=== PATIENT | female | born 1990 | race African-American/Black ===

== ENCOUNTER 2017-03-03 02:47 | Inpatient (IN) | payer MEDICAID ==
[~2017-03-03] VITALS: Ht 165.1 cm; Wt 72.4 kg
[2017-03-03] VITALS (11 sets, daily range): BP systolic 95–123; BP diastolic 50–77; PULSE 82–125; RESP 16–20; TEMP 97.4–99.8; O2SAT 93–100
[~2017-03-03 02:47] MED LIST: FOLI1TAB PO
[2017-03-03] MEDS ORDERED: FOLI400T PO (04:02)
[2017-03-03] MEDS ORDERED: SODIUM CHLOR 0.9% 1000 ML INJ 1,000 ML IV ONE ×2 (04:18→04:30)
[2017-03-03] MEDS ORDERED: SODIUM CHLORIDE 0.9% FLUSH 10 ML FLUSH IVF PRN (04:30)
[2017-03-03] MEDS ORDERED: KETOROLAC TROMETHAMINE 30 MG/ML (IVP) VIAL IV PUSH ONE (04:30)
[2017-03-03] MEDS ORDERED: MORPHINE SULFATE 8 MG/ML INJ IV PUSH ONE ×2 (04:30→05:45)
--- NOTE | 2017-03-03 04:37 | PD ---
HPI Chief Complaint: Sickle Cell Time Seen by Provider: 04:12 Travel History International Travel<30 days: No Contact w/Intl Traveler<30days: No Traveled to known affect area: No History of Present Illness HPI Patient is a 26-year-old female presents emergency department for evaluation of pain all over. She states she has a history of sickle cell anemia and this is her typical pain crisis. She states she tried some [place] at home without relief. She does endorse some mild shortness of breath. She states she is currently on her period and she thinks that this usually exacerbates her pain crises. Denies any chest pain denies any fevers. States the pain is typically in her back and a lateral upper and bilateral lower extremities. Denies any abdominal pain. PFSH Past Medical History Asthma: Yes Cardiovascular Problems: Yes (CHF) Respiratory: Yes (ASTHMA) Sickle Cell Disease: Yes ?: Not LMP: CURRENT : 0 Past Surgical History Other Surgery: Yes (CHOLELITHIASIS) Social History Alcohol Use: No Tobacco Use: No Substance Use: No Allergies-Medications (Allergen,Severity, Reaction): Coded Allergies: Percocet (Verified Allergy, Severe, 03/03/17) Reported Meds & Prescriptions Reported Meds & Active Scripts Active Reported Folic Acid 400 Mcg Tab 5 Mg PO DAILY Review of Systems Except as stated in HPI: all other systems reviewed are Neg Physical Exam Narrative GENERAL: Well-developed well-nourished, appears fairly comfortable SKIN: Focused skin assessment warm/dry. HEAD: Atraumatic. Normocephalic. EYES: Pupils equal and round. No scleral icterus. No injection or drainage. ENT: No nasal bleeding or discharge. Mucous membranes pink and moist. NECK: Trachea midline. No JVD. CARDIOVASCULAR: Regular rate and rhythm. No murmur appreciated. RESPIRATORY: No accessory muscle use. Clear to auscultation. Breath sounds equal bilaterally. GASTROINTESTINAL: Abdomen soft, non-tender, nondistended. Hepatic and splenic margins not palpable. MUSCULOSKELETAL: No obvious deformities. No clubbing. No cyanosis. No edema. NEUROLOGICAL: Awake and alert. No obvious cranial nerve deficits. Motor grossly within normal limits. Normal speech. PSYCHIATRIC: Appropriate mood and affect; insight and judgment normal. Data Data Last Documented VS Vital Signs Date Time Temp Pulse Resp B/P Pulse Ox O2 Delivery O2 Flow Rate FiO2 03/03/17 04:45 85 16 110/72 97 Room Air 03/03/17 02:50 99.8 Orders Basic Metabolic Panel (Bmp) (03/03/17 04:18) Complete Blood Count With Diff (03/03/17 04:18) Retic Count (03/03/17 04:18) Urinalysis - C+S If Indicated (03/03/17 04:18) Chest, Single Ap (03/03/17 04:18) Ecg Monitoring (03/03/17 04:18) Iv Access Insert/Monitor (03/03/17 04:18) Oximetry (03/03/17 04:18) Sodium Chloride 0.9% Flush (Ns Flush) (03/03/17 04:30) Sodium Chlor 0.9% 1000 Ml Inj (Ns 1000 M (03/03/17 04:18) Ed Urine Pregnancytest Poc (03/03/17 04:18) Sodium Chlor 0.9% 1000 Ml Inj (Ns 1000 M (03/03/17 04:30) Ketorolac Inj (Toradol Inj) (03/03/17 04:30) Morphine Inj (Morphine Inj) (03/03/17 04:30) Morphine Inj (Morphine Inj) (03/03/17 05:45) Diphenhydramine Inj (Benadryl Inj) (03/03/17 05:45) Type And Screen (03/03/17 05:36) Red Blood Cells (Rbc) (03/03/17 05:40) Blood Product Administration .UPON TRANSFUSION (03/03/17 05:40) Sodium Chlor 0.9% 250 Ml Inj (Ns 250 Ml (03/03/17 05:45) Admit Order (Ed Use Only) (03/03/17 ) Labs Laboratory Tests Test 03/03/17 04:45 White Blood Count 14.7 TH/MM3 Red Blood Count 2.23 MIL/MM3 Hemoglobin 6.6 GM/DL Hematocrit 18.5 % Mean Corpuscular Volume 83.1 FL Mean Corpuscular Hemoglobin 29.6 PG Mean Corpuscular Hemoglobin 35.6 % Concent Red Cell Distribution Width 18.6 % Platelet Count 491 TH/MM3 Mean Platelet Volume 8.1 FL Neutrophils (%) (Auto) 65.2 % Lymphocytes (%) (Auto) 18.9 % Monocytes (%) (Auto) 11.7 % Eosinophils (%) (Auto) 3.3 % Basophils (%) (Auto) 0.9 % Neutrophils # (Auto) 9.6 TH/MM3 Lymphocytes # (Auto) 2.8 TH/MM3 Monocytes # (Auto) 1.7 TH/MM3 Eosinophils # (Auto) 0.5 TH/MM3 Basophils # (Auto) 0.1 TH/MM3 CBC Comment AUTO DIFF Reticulocyte Count 9.0 % Absolute Reticulocyte Count 200.0 MIL/L Sodium Level 139 MEQ/L Potassium Level 3.8 MEQ/L Chloride Level 107 MEQ/L Carbon Dioxide Level 23.2 MEQ/L Anion Gap 9 MEQ/L Blood Urea Nitrogen 12 MG/DL Creatinine 0.86 MG/DL Estimat Glomerular Filtration 96 ML/MIN Rate Random Glucose 98 MG/DL Calcium Level 8.6 MG/DL MDM Medical Decision Making Medical Screen Exam Complete: Yes Emergency Medical Condition: Yes Differential Diagnosis Sickle cell pain crisis, occlusive crisis, aplastic crisis, sequestration unlikely, acute chest syndrome unlikely. Narrative Course This 26-year-old female presents emergency department for evaluation of sickle cell pain crisis. Hemoglobin is 6.6. This was discussed with the patient recommended that she have blood transfusion and she is agreeable after discussions of risks benefits competitions and alternatives. She was initially given 8 mg of morphine as well as Toradol and normal saline, she states since her pain was still intense, and additional dose of morphine was ordered. She was discussed with Dr. Pineda for admission who is agreeable. Diagnosis Primary Impression: Sickle cell pain crisis Additional Impression: Anemia Admitting Information Admitting Physician Requests: Admit Condition: Stable Dangelo Whatley MD Mar 03, 2017 04:37
[2017-03-03 05:05] LABS: AUTOMATED NEUTROPHIL # 9.6 TH/MM3 (1.8-7.7); BASOPHIL # 0.1 TH/MM3 (0-0.2); BASOPHIL % 0.9 % (0.0-2.0); EOSINOPHIL # 0.5 TH/MM3 (0-0.4); EOSINOPHIL % 3.3 % (0.0-4.0); LYMPH % 18.9 % (9.0-44.0); LYMPHOCYTE # 2.8 TH/MM3 (1.0-4.8); MEAN CELL VOLUME 83.1 FL (80.0-100.0); MEAN CORPUSCULAR HEMOGLOBIN 29.6 PG (27.0-34.0); MEAN CORPUSCULAR HGB CONC 35.6 % (32.0-36.0); MONO % 11.7 % (0.0-8.0); NEUT % 65.2 % (16.0-70.0); PLATELET COUNT 491 TH/MM3 (150-450); RED BLOOD COUNT 2.23 MIL/MM3 (4.00-5.30); RED CELL DISTRIBUTION WIDTH 18.6 % (11.6-17.2); WHITE BLOOD COUNT 14.7 TH/MM3 (4.0-11.0)
[2017-03-03 05:09] LABS: HEMO FLAGS AUTO DIFF; REVIEW FLAG FINAL
[2017-03-03 05:11] LABS: HEMATOCRIT 18.5 % (35.0-46.0)
--- NOTE | 2017-03-03 05:13 | RADRPT ---
EXAM DATE/TIME: 03/03/2017 04:27 [facility] COMPARISON: No previous studies available for comparison. INDICATIONS : Sickle cell crisis. MEDICAL HISTORY : Sickle Cell disease. SURGICAL HISTORY : None. ENCOUNTER: Initial ACUITY: 1 day PAIN SCORE: 7/10 LOCATION: Bilateral chest FINDINGS: A single view of the chest demonstrates the lungs to be symmetrically aerated without evidence of mas s, infiltrate or effusion. Slight elevation right hemidiaphragm. Right-sided portacatheter with tip i n the right atrium. The cardiomediastinal contours are unremarkable. Osseous structures are intact. CONCLUSION: No acute disease. Ted Bojorquez MD on March 03, 2017 at 5:10 Board Certified Radiologist. This report was verified electronically.
[2017-03-03 05:30] LABS: BICARBONATE 23.2 MEQ/L (21.0-32.0); POTASSIUM 3.8 MEQ/L (3.5-5.1)
[2017-03-03] MEDS ORDERED: SODIUM CHLOR 0.9% 250 ML INJ 250 ML IV ONE (05:45)
[2017-03-03] MEDS ORDERED: diphenhydrAMINE HCL 50 MG/ML VIAL IV PUSH ONE (05:45)
[2017-03-03] MEDS ORDERED: NALOXONE HCL 0.4 MG/ML AMP IV PRN (06:30)
[2017-03-03] MEDS ORDERED: HYDROmorphone HCL PF 1 MG/ML VIAL IV PUSH PRN (06:30)
[2017-03-03 06:43] LABS: BACTERIA, URINE OCC /hpf; BLOOD, URINE MOD (NEG); COMMENT (UR) CULT NOT INDICATED; CULTURE IF INDICATED CULT NOT INDICATED; GLUCOSE,URINE NEG (NEG); HYALINE CAST, URINE 8 /lpf (RARE); KETONE, URINE NEG (NEG); MUCUS URINE FEW /lpf (OCC); NITRITE,URINE NEG (NEG); SQUAMOUS EPITHELIAL CELL URINE 7 /hpf (0-5); URINE COLOR YELLOW (YELLW/STRAW)
[2017-03-03 07:04] LABS: BANDS 1 % (0-6); BASOPHILS 1 % (0-2); CORRECTED NUCLEATED RBC 1 /100 WBC (0-0); EOSINOPHILS 6 % (0-4); NEUTROPHIL # MANUAL DIFF 9.1 TH/MM3 (1.8-7.7); POLYS (SEG NEUTROPHILS) 61 % (16-70); WBC DIFF SAMPLE 100
[2017-03-03 07:05] LABS: HOWELL-JOLLY BODIES PRESENT (NONE SEEN); PLATELET ESTIMATE SMEAR HIGH (NORMAL); PLATELET MORPHOLOGY NORMAL (NORMAL); SICKLE CELLS 1+ (NORMAL); TARGET CELLS 1+ (NORMAL)
[2017-03-03 07:06] LABS: SCAN/DIFF FINAL DIFF MANUAL
--- NOTE | 2017-03-03 08:49 | HHI.HP ---
HPI Service [facility] Primary Care Physician No Primary Care Physician Admission Diagnosis Sickle cell pain crisis. Diagnoses: Chief Complaint: Severe generalized pain Travel History International Travel<30 Days: No Contact w/Intl Traveler <30 Da: No Traveled to Known Affected Are: No History of Present Illness Written by Mariana Peres, acting as scribe for Dr. Deleon on 03/03/17 at 08: 30. Patient is a 26-year-old female with primary medical history of sickle cell anemia, asthma came into the hospital for severe generalized pain. Patient states pain started couple days ago, she takes Lortab 10 mg every 6 hours at home and has ran out 12 hours prior to being at the hospital. Reports she has her menstrual cycle and it's usually heavy. Patient also states that she gets increased pain with menstrual cycle. Pain described as "all over", rated as "real bad", improve with morphine medication. States she is previously being seen by Dr. Mares but says "They discharged all sickle cell patients." Patient reports shortness of breath but states she has asthma. She denies cough but states she occasionally would cough up phlegm greenish in color. Reports night sweats occasionally. Denies chest pain, palpitations, headaches, dizziness. Denies fevers, chills. Denies dysuria, abdominal pain, abdominal cramping, nausea, vomiting, diarrhea. Review of Systems Except as stated in HPI: all other systems reviewed are Neg Past Family Social History Past Medical History Sickle cell anemia Asthma Past Surgical History Cholecystectomy Port placements and removal Reported Medications Reported Meds & Active Scripts Active Reported Folic Acid 400 Mcg Tab 5 Mg PO DAILY Allergies: Coded Allergies: Percocet (Verified Allergy, Severe, 03/03/17) Active Ordered Medications Current Medications Medications (Trade) Dose Ordered Sig/Dang Route Start Time Stop Time Status Last Admin Sodium Chloride 250 ml @ 15 mls/hr ONCE ONCE IV 03/03/17 05:45 03/03/17 22:24 (NS 1000 ml Inj) 1,000 ml @ 150 mls/hr Q6H40M IV 03/03/17 06:18 (NS Flush) 2 ml UNSCH PRN IV FLUSH 03/03/17 06:30 (NS Flush) 2 ml BID IV FLUSH 03/03/17 09:00 (Narcan Inj) 0.4 mg UNSCH PRN IV 03/03/17 06:30 (Dilaudid Pf Inj) 0.5 mg Q3H PRN IV PUSH 03/03/17 06:30 Family History Older sister have sickle cell Social History Denies alcohol use Denies tobacco use Denies illicit drug use Physical Exam Vital Signs Vital Signs Date Time Temp Pulse Resp B/P Pulse Ox O2 Delivery O2 Flow Rate FiO2 03/03/17 06:00 95 16 121/64 98 Room Air 03/03/17 05:00 88 16 109/67 98 Room Air 03/03/17 04:45 85 16 110/72 97 Room Air 03/03/17 02:50 99.8 125 16 123/77 94 Room Air Physical Exam GENERAL: This is a well-nourished, well-developed patient, in no apparent distress. SKIN: No rashes, ecchymoses or lesions. Warm and dry. HEAD: Atraumatic. Normocephalic. No temporal or scalp tenderness. EYES: Pupils equal round and reactive. Extraocular motions intact. No injection or drainage. Icteric. ENT: Nose without bleeding. Throat without erythema. Uvula midline. Airway patent. NECK: Trachea midline. No JVD or lymphadenopathy. CARDIOVASCULAR: Regular rate and rhythm without murmurs, gallops, or rubs. RESPIRATORY: Clear to auscultation. Breath sounds equal bilaterally. No wheezes , rales, or rhonchi. GASTROINTESTINAL: Abdomen soft, non-tender, nondistended. Bowel sounds active 4. MUSCULOSKELETAL: Extremities without clubbing, cyanosis, or edema. No joint tenderness, effusion, or edema noted. NEUROLOGICAL: Awake and alert. Oriented to time, place, person. Motor and sensory grossly within normal limits. Normal speech. Laboratory Laboratory Tests Test 03/03/17 03/03/17 03/03/17 03/03/17 04:45 05:30 06:05 06:22 White Blood Count 14.7 Red Blood Count 2.23 Hemoglobin 6.6 Hematocrit 18.5 Mean Corpuscular Volume 83.1 Mean Corpuscular Hemoglobin 29.6 Mean Corpuscular Hemoglobin 35.6 Concent Red Cell Distribution Width 18.6 Platelet Count 491 Mean Platelet Volume 8.1 Neutrophils (%) (Auto) 65.2 Lymphocytes (%) (Auto) 18.9 Monocytes (%) (Auto) 11.7 Eosinophils (%) (Auto) 3.3 Basophils (%) (Auto) 0.9 Neutrophils # (Auto) 9.6 Lymphocytes # (Auto) 2.8 Monocytes # (Auto) 1.7 Eosinophils # (Auto) 0.5 Basophils # (Auto) 0.1 CBC Comment AUTO DIFF Differential Total Cells 100 Counted Neutrophils % (Manual) 61 Band Neutrophils % 1 Lymphocytes % 21 Monocytes % 10 Eosinophils % 6 Basophils % 1 Neutrophils # (Manual) 9.1 Nucleated Red Blood Cells 1 Differential Comment FINAL DIFF MANUAL Platelet Estimate HIGH Platelet Morphology Comment NORMAL Sickle Cells 1+ Target Cells 1+ [place] Bodies PRESENT Reticulocyte Count 9.0 Absolute Reticulocyte Count 200.0 Sodium Level 139 Potassium Level 3.8 Chloride Level 107 Carbon Dioxide Level 23.2 Anion Gap 9 Blood Urea Nitrogen 12 Creatinine 0.86 Estimat Glomerular Filtration 96 Rate Random Glucose 98 Calcium Level 8.6 Urine Color YELLOW Urine Turbidity HAZY Urine pH 6.0 Urine Specific [place] 1.014 Urine Protein TRACE Urine Glucose (UA) NEG Urine Ketones NEG Urine Occult Blood MOD Urine Nitrite NEG Urine Bilirubin NEG Urine Urobilinogen LESS THAN 2.0 Urine Leukocyte Esterase MOD Urine RBC 2 Urine WBC 7 Urine Squamous Epithelial 7 Cells Urine Bacteria OCC Urine Hyaline Casts 8 Urine Mucus FEW Microscopic Urinalysis Comment CULT NOT INDICATED Blood Type AB POSITIVE AB POSITIVE Antibody Screen NEGATIVE Crossmatch Leukocyte-Reduced Red Blood Cells Blood Bank Comment Result Diagram: 03/03/1744403/03/17444 Assessment and Plan Problem List: (1) Sickle cell pain crisis ICD Code: D57.00 Status: Acute (2) Anemia ICD Code: D64.9 Status: Acute Assessment and Plan Patient is a 26-year-old female with primary medical history of sickle cell anemia, asthma came into the hospital for severe generalized pain. Sickle cell crisis Sickle cell anemia, acute on chronic - Patient with history of sickle cell anemia, pain crisis usually exacerbated with menstrual period. Unrelieved by [place] from home. - IV fluids for hydration - H/H 6.6/18.5 - Transfuse 1 units PRBC. Follow-up CBC. - Pain management, pain control IV morphine, IV Dilaudid - Restart home medication folic acid, will ask nursing to verify other medications from her [facility] - Supportive care Asthma, not in exacerbation - Chest x-ray showed no acute disease - DuoNeb's when necessary Leukocytosis - Possibly related to sickle cell crisis - Trend CBC - UA with moderate leukoesterase, culture not indicated. - Denies dysuria DVT prop Lovenox Code Status Full code Discussed Condition With Patient, nursing Physician Certification 2 Midnight Certification Type: Admission for Inpatient Services Order for Inpatient Services The services are ordered in accordance with Medicare regulations or non- Medicare payer requirements, as applicable. In the case of services not specified as inpatient-only, they are appropriately provided as inpatient services in accordance with the 2-midnight benchmark. Estimated LOS (days): 2 days is the estimated time the patient will need to remain in the hospital, assuming treatment plan goals are met and no additional complications. Post-Hospital Plan: Home Problem Qualifiers (1) Anemia: Mariana Melvin Mar 03, 2017 08:49 Alexandria Deleon MD Mar 03, 2017 09:43
[2017-03-03] MEDS: SODIUM CHLOR 0.9% 1000 ML INJ 1,000 ML IV SCH ×4 (08:50→19:57)
[2017-03-03] MEDS: SODIUM CHLORIDE 0.9% FLUSH 10 ML FLUSH IV FLUSH SCH ×2 (09:00→19:57)
[2017-03-03] MEDS: MORPHINE SULFATE 4 MG/ML INJ IV PUSH PRN ×5 (09:27→21:27)
[2017-03-03] MEDS: ENOXAPARIN SODIUM 40 MG/0.4 ML SYRINGE SQ SCH (10:00)
[2017-03-03] MEDS: FOLIC ACID 1 MG TAB PO SCH (10:51)
[2017-03-03] MEDS: diphenhydrAMINE HCL 25 MG CAP PO PRN ×2 (10:51→18:31)
[2017-03-04] VITALS (10 sets, daily range): BP systolic 102–124; BP diastolic 63–80; PULSE 76–93; RESP 16–20; TEMP 96–98.3; O2SAT 95–100
[2017-03-04] MEDS: MORPHINE SULFATE 4 MG/ML INJ IV PUSH PRN ×6 (00:34→15:22)
[2017-03-04] MEDS: diphenhydrAMINE HCL 25 MG CAP PO PRN ×4 (00:36→23:47)
[2017-03-04] MEDS: SODIUM CHLOR 0.9% 1000 ML INJ 1,000 ML IV SCH ×3 (03:36→20:47)
[2017-03-04 07:04] LABS: AUTOMATED NEUTROPHIL # 5.8 TH/MM3 (1.8-7.7); BASOPHIL % 0.3 % (0.0-2.0); EOSINOPHIL # 0.8 TH/MM3 (0-0.4); EOSINOPHIL % 7.6 % (0.0-4.0); LYMPH % 27.2 % (9.0-44.0); LYMPHOCYTE # 3.1 TH/MM3 (1.0-4.8); MEAN CELL VOLUME 86.1 FL (80.0-100.0); MEAN CORPUSCULAR HEMOGLOBIN 29.2 PG (27.0-34.0); MEAN CORPUSCULAR HGB CONC 33.9 % (32.0-36.0); MONO % 13.3 % (0.0-8.0); NEUT % 51.6 % (16.0-70.0); PLATELET COUNT 356 TH/MM3 (150-450); RED CELL DISTRIBUTION WIDTH 18.1 % (11.6-17.2); WHITE BLOOD COUNT 11.2 TH/MM3 (4.0-11.0)
[2017-03-04 07:09] LABS: BICARBONATE 23.6 MEQ/L (21.0-32.0); POTASSIUM 3.9 MEQ/L (3.5-5.1)
[2017-03-04 07:14] LABS: HEMO FLAGS DIFF FINAL
[2017-03-04 07:15] LABS: HEMATOCRIT 18.9 % (35.0-46.0)
[2017-03-04] MEDS: SODIUM CHLORIDE 0.9% FLUSH 10 ML FLUSH IV FLUSH SCH ×2 (09:22→20:11)
[2017-03-04] MEDS: FOLIC ACID 1 MG TAB PO SCH (09:24)
[2017-03-04] MEDS: ENOXAPARIN SODIUM 40 MG/0.4 ML SYRINGE SQ SCH (09:25)
--- NOTE | 2017-03-04 10:46 | HHI.PR ---
Subjective Remarks f/u; sickle cell painful crisis still complaining of generalized body ache. noted a drop in H/H. PRBC transfusion in process. d/w the RN. Objective Vitals Vital Signs Date Time Temp Pulse Resp B/P Pulse Ox O2 Delivery O2 Flow Rate FiO2 03/04/17 09:45 96.0 82 16 112/72 96 03/04/17 09:15 97.2 82 18 113/80 100 03/04/17 08:57 96.3 82 16 112/70 97 03/04/17 08:35 97.9 80 16 108/70 95 03/04/17 08:05 92 03/04/17 04:00 97.0 93 20 108/63 95 03/04/17 00:00 97.1 84 20 111/66 95 03/03/17 20:00 97.9 82 20 103/57 93 03/03/17 16:00 98.5 92 16 97/55 94 03/03/17 12:45 97.4 89 19 113/66 99 03/03/17 10:57 95 18 114/70 93 Room Air I/O 03/03/17 03/03/17 03/03/17 03/04/17 03/04/17 03/04/17 07:00 15:00 23:00 07:00 15:00 23:00 Intake Total 490 ml 240 ml 1300 ml Balance 490 ml 240 ml 1300 ml Intake Oral 240 ml 240 ml IV Total 1300 ml Packed Cells 250 ml # Voids 1 2 2 Result Diagram: 03/04/17 0625 03/04/17 0625 Imaging Last Impressions Chest X-Ray 03/03/17 0418 Signed Impressions: Service Date/Time: February 04:27 - CONCLUSION: No acute disease. Ted Bojorquez MD Objective Remarks GENERAL: This is a well-nourished, well-developed patient, in no apparent distress. CARDIOVASCULAR: Regular rate and regular rhythm without murmurs, gallops, or rubs. RESPIRATORY: Clear to auscultation. Breath sounds equal bilaterally. No wheezes , rales, or rhonchi. GASTROINTESTINAL: Abdomen soft, non-tender, nondistended. Normal, active bowel sounds MUSCULOSKELETAL: Extremities without clubbing, cyanosis, or edema. NEURO: Alert & Oriented x4 to person, place, time, situation. Moves all ext x4 Procedures none Medications and IVs Current Medications Sodium Chloride 2 ml 2 ml UNSCH PRN IVF FLUSH AFTER USING IV ACCESS Last administered on 03/03/17 04:58; Start 03/03/17 at 04:30; Stop 03/03/17 at 06:30; Status DC Sodium Chloride 1,000 ml @ 1,000 mls/hr Q1H ONCE IV Last administered on 04:57; Start 03/03/17 at 04:18; Stop 03/03/17 at 05:17; Status DC Sodium Chloride (NS 1000 ml Inj) 1,000 ml @ 999 mls/hr BOLUS ONCE IV Last administered on 03/03/17 04:58; Start 03/03/17 at 04:30; Stop 03/03/17 at 05:30; Status DC Ketorolac Tromethamine (Toradol Inj) 30 mg ONCE ONCE IV PUSH Last administered on 03/03/17 04:58; Start 03/03/17 at 04:30; Stop 03/03/17 at 04:31; Status DC Morphine Sulfate (Morphine Inj) 8 mg ONCE ONCE IV PUSH Last administered on 04:58; Start 03/03/17 at 04:30; Stop 03/03/17 at 04:31; Status DC Morphine Sulfate (Morphine Inj) 8 mg ONCE ONCE IV PUSH Last administered on 06:14; Start 03/03/17 at 05:45; Stop 03/03/17 at 05:46; Status DC Diphenhydramine HCl 25 mg 25 mg ONCE ONCE IV PUSH Last administered on 06:13; Start 03/03/17 at 05:45; Stop 03/03/17 at 05:46; Status DC Sodium Chloride 250 ml @ 15 mls/hr ONCE ONCE IV Last administered on 09:17; Start 03/03/17 at 05:45; Stop 03/03/17 at 22:24; Status DC Sodium Chloride (NS 1000 ml Inj) 1,000 ml @ 150 mls/hr Q6H40M IV Last administered on 03/04/17 03:36; Start 03/03/17 at 06:18 Sodium Chloride (NS Flush) 2 ml UNSCH PRN IV FLUSH FLUSH AFTER USING IV ACCESS ; Start 03/03/17 at 06:30 Sodium Chloride (NS Flush) 2 ml BID IV FLUSH Last administered on 03/04/17 09: 22; Start 03/03/17 at 09:00 Naloxone HCl (Narcan Inj) 0.4 mg UNSCH PRN IV SEE LABEL COMMENTS; Start at 06:30 Hydromorphone HCl (Dilaudid Pf Inj) 0.5 mg Q3H PRN IV PUSH pain >5; Start at 06:30; Stop 03/03/17 at 08:43; Status DC Morphine Sulfate (Morphine Inj) 2 mg Q3H PRN IV PUSH PAIN >5 Last administered on 03/04/17 09:23; Start 03/03/17 at 09:30 Folic Acid (Folate) 1 mg DAILY PO Last administered on 03/04/17 09:24; Start at 10:00 Enoxaparin Sodium (Lovenox Inj) 40 mg Q24H SQ ; Start 03/03/17 at 10:00 Diphenhydramine HCl (Benadryl) 25 mg Q6H PRN PO URTICARIA Last administered on 03/04/17 09:24; Start 03/03/17 at 09:30 A/P Assessment and Plan Sickle cell crisis Sickle cell anemia, acute on chronic - Patient with history of sickle cell anemia, pain crisis usually exacerbated with menstrual period. Unrelieved by [place] from home. - IV fluids for hydration - Transfuse 1 units PRBC today. Follow-up CBC. - Pain management, pain control IV morphine, IV Dilaudid -consult hematology Asthma, not in exacerbation - Chest x-ray showed no acute disease - DuoNeb's when necessary Leukocytosis - Possibly related to sickle cell crisis - Trend CBC - UA with moderate leukoesterase, culture not indicated. - Denies dysuria DVT prop Alexandria Maurer MD Mar 04, 2017 10:46
[2017-03-04] MEDS: MORPHINE SULFATE 8 MG/ML INJ IV PUSH PRN ×3 (17:51→23:44)
--- NOTE | 2017-03-04 18:31 | PD.ONC.PN ---
Subjective Subjective Remarks I came in to see the patient at 5:25pm. She asked me to come back later because she does not feel well enough to talk to me. She denies chest pain or difficulty breathing; I was able to ask her that much. She reports "sickle cell pain", and reports wanting to rest. I advised her that I would be happy to come in tomorrow AM to see her. I did review her labs, orders for pain meds and transfusion orders. Objective Data Date Time Temp Pulse Resp B/P Pulse Ox O2 Delivery O2 Flow Rate FiO2 03/04/17 09:45 96.0 82 16 112/72 96 03/04/17 09:15 97.2 82 18 113/80 100 03/04/17 08:57 96.3 82 16 112/70 97 03/04/17 08:35 97.9 80 16 108/70 95 03/04/17 08:05 92 03/04/17 04:00 97.0 93 20 108/63 95 03/04/17 00:00 97.1 84 20 111/66 95 03/03/17 20:00 97.9 82 20 103/57 93 03/04/17 03/04/17 03/04/17 07:00 15:00 23:00 Intake Total 1300 ml 1606 ml Balance 1300 ml 1606 ml Result Diagram: 03/04/1762403/04/17624 Laboratory Results Laboratory Tests Test 03/04/17 06:25 White Blood Count 11.2 TH/MM3 Red Blood Count 2.20 MIL/MM3 Hemoglobin 6.4 GM/DL Hematocrit 18.9 % Mean Corpuscular Volume 86.1 FL Mean Corpuscular Hemoglobin 29.2 PG Mean Corpuscular Hemoglobin 33.9 % Concent Red Cell Distribution Width 18.1 % Platelet Count 356 TH/MM3 Mean Platelet Volume 8.2 FL Neutrophils (%) (Auto) 51.6 % Lymphocytes (%) (Auto) 27.2 % Monocytes (%) (Auto) 13.3 % Eosinophils (%) (Auto) 7.6 % Basophils (%) (Auto) 0.3 % Neutrophils # (Auto) 5.8 TH/MM3 Lymphocytes # (Auto) 3.1 TH/MM3 Monocytes # (Auto) 1.5 TH/MM3 Eosinophils # (Auto) 0.8 TH/MM3 Basophils # (Auto) 0.0 TH/MM3 CBC Comment DIFF FINAL Differential Comment Sodium Level 141 MEQ/L Potassium Level 3.9 MEQ/L Chloride Level 112 MEQ/L Carbon Dioxide Level 23.6 MEQ/L Anion Gap 5 MEQ/L Blood Urea Nitrogen 6 MG/DL Creatinine 0.57 MG/DL Estimat Glomerular Filtration 154 ML/MIN Rate Random Glucose 127 MG/DL Calcium Level 8.0 MG/DL Administered Medications Medications (Trade) Dose Ordered Sig/Dang Route PRN Reason Start Time Stop Time Status Last Admin Dose Admin Sodium Chloride (NS 1000 ml Inj) 1,000 ml @ 150 mls/hr Q6H40M IV 03/03/17 06:18 03/04/17 17:06 Sodium Chloride (NS Flush) 2 ml BID IV FLUSH 03/03/17 09:00 03/04/17 09:22 Folic Acid (Folate) 1 mg DAILY PO 03/03/17 10:00 03/04/17 09:24 Diphenhydramine HCl (Benadryl) 25 mg Q6H PRN PO URTICARIA 03/03/17 09:30 03/04/17 15:21 Morphine Sulfate (Morphine Inj) 2 mg Q3H PRN IV PUSH PAIN >5 03/04/17 15:30 03/04/17 17:51 Objective Remarks GENERAL: Well-nourished, well-developed patient. SKIN: Warm and dry. HEAD: Normocephalic. EYES: No scleral icterus. No injection or drainage. NECK: Supple, trachea midline. No JVD or lymphadenopathy. LYMPHATIC: No adenopathy. CARDIOVASCULAR: Regular rate and rhythm without murmurs. RESPIRATORY: Breath sounds equal bilaterally. No accessory muscle use. GASTROINTESTINAL: Abdomen soft, non-tender, nondistended. EXTREMITIES: No cyanosis, or edema. MUSCULOSKELETAL: Adequate muscle tone. NEUROLOGICAL: No obvious focal deficit. Awake, alert, and oriented x3. PSYCHIATRIC: Appropriate mood and affect; insight and judgment normal. Bobo Lemos MD Mar 04, 2017 18:31
[2017-03-05] VITALS (7 sets, daily range): BP systolic 115–131; BP diastolic 53–81; PULSE 62–88; RESP 16–18; TEMP 97–98.4; O2SAT 95–98
[2017-03-05] MEDS: MORPHINE SULFATE 8 MG/ML INJ IV PUSH PRN ×5 (02:51→15:17)
[2017-03-05] MEDS: SODIUM CHLOR 0.9% 1000 ML INJ 1,000 ML IV SCH ×2 (04:58→11:38)
[2017-03-05 06:58] LABS: AUTOMATED NEUTROPHIL # 6.5 TH/MM3 (1.8-7.7); BASOPHIL # 0.1 TH/MM3 (0-0.2); BASOPHIL % 0.4 % (0.0-2.0); EOSINOPHIL # 1.1 TH/MM3 (0-0.4); EOSINOPHIL % 8.6 % (0.0-4.0); HEMATOCRIT 21.3 % (35.0-46.0); HEMO FLAGS DIFF FINAL; LYMPH % 27.1 % (9.0-44.0); LYMPHOCYTE # 3.4 TH/MM3 (1.0-4.8); MEAN CELL VOLUME 85.7 FL (80.0-100.0); MEAN CORPUSCULAR HEMOGLOBIN 29.9 PG (27.0-34.0); MEAN CORPUSCULAR HGB CONC 34.9 % (32.0-36.0); MONO % 12.3 % (0.0-8.0); NEUT % 51.6 % (16.0-70.0); PLATELET COUNT 383 TH/MM3 (150-450); RED BLOOD COUNT 2.48 MIL/MM3 (4.00-5.30); RED CELL DISTRIBUTION WIDTH 17.8 % (11.6-17.2); WHITE BLOOD COUNT 12.5 TH/MM3 (4.0-11.0)
[2017-03-05] MEDS: diphenhydrAMINE HCL 25 MG CAP PO PRN ×2 (09:04→17:54)
[2017-03-05] MEDS: SODIUM CHLORIDE 0.9% FLUSH 10 ML FLUSH IV FLUSH SCH ×2 (09:04→21:03)
[2017-03-05] MEDS: FOLIC ACID 1 MG TAB PO SCH (09:04)
[2017-03-05] MEDS: ENOXAPARIN SODIUM 40 MG/0.4 ML SYRINGE SQ SCH (09:05)
--- NOTE | 2017-03-05 10:36 | HHI.PR ---
Subjective Remarks says that her pain is ' a little ' better today. no other new complaints. Objective Vitals Vital Signs Date Time Temp Pulse Resp B/P Pulse Ox O2 Delivery O2 Flow Rate FiO2 03/05/17 09:15 18 03/05/17 07:59 97.0 77 18 118/70 97 03/05/17 04:42 98.4 77 16 115/53 96 03/05/17 00:17 97.6 88 16 131/81 96 03/04/17 20:29 98.3 83 16 124/77 96 03/04/17 16:00 82 18 120/73 96 03/04/17 12:00 97.8 76 18 102/75 98 I/O 03/04/17 03/04/17 03/04/17 03/05/17 03/05/17 03/05/17 07:00 15:00 23:00 07:00 15:00 23:00 Intake Total 1300 ml 1606 ml 2120 ml Balance 1300 ml 1606 ml 2120 ml Intake Oral 720 ml IV Total 1300 ml 1606 ml 1400 ml # Voids 2 6 Result Diagram: 03/05/17 0630 03/04/17 0625 Imaging Last Impressions Chest X-Ray 03/03/17 0418 Signed Impressions: Service Date/Time: February 04:27 - CONCLUSION: No acute disease. Ted Bojorquez MD Objective Remarks GENERAL: This is a well-nourished, well-developed patient, in no apparent distress. CARDIOVASCULAR: Regular rate and regular rhythm without murmurs, gallops, or rubs. RESPIRATORY: Clear to auscultation. Breath sounds equal bilaterally. No wheezes , rales, or rhonchi. GASTROINTESTINAL: Abdomen soft, non-tender, nondistended. Normal, active bowel sounds MUSCULOSKELETAL: Extremities without clubbing, cyanosis, or edema. NEURO: Alert & Oriented x4 to person, place, time, situation. Moves all ext x4 Procedures none Medications and IVs Current Medications Sodium Chloride 2 ml 2 ml UNSCH PRN IVF FLUSH AFTER USING IV ACCESS Last administered on 03/03/17t 04:58; Start 03/03/17 at 04:30; Stop 03/03/17 at 06:30; Status DC Sodium Chloride 1,000 ml @ 1,000 mls/hr Q1H ONCE IV Last administered on 04:57; Start 03/03/17 at 04:18; Stop 03/03/17 at 05:17; Status DC Sodium Chloride (NS 1000 ml Inj) 1,000 ml @ 999 mls/hr BOLUS ONCE IV Last administered on 03/03/17 04:58; Start 03/03/17 at 04:30; Stop 03/03/17 at 05:30; Status DC Ketorolac Tromethamine (Toradol Inj) 30 mg ONCE ONCE IV PUSH Last administered on 03/03/17 04:58; Start 03/03/17 at 04:30; Stop 03/03/17 at 04:31; Status DC Morphine Sulfate (Morphine Inj) 8 mg ONCE ONCE IV PUSH Last administered on 04:58; Start 03/03/17 at 04:30; Stop 03/03/17 at 04:31; Status DC Morphine Sulfate (Morphine Inj) 8 mg ONCE ONCE IV PUSH Last administered on 06:14; Start 03/03/17 at 05:45; Stop 03/03/17 at 05:46; Status DC Diphenhydramine HCl 25 mg 25 mg ONCE ONCE IV PUSH Last administered on 06:13; Start 03/03/17 at 05:45; Stop 03/03/17 at 05:46; Status DC Sodium Chloride 250 ml @ 15 mls/hr ONCE ONCE IV Last administered on 09:17; Start 03/03/17 at 05:45; Stop 03/03/17 at 22:24; Status DC Sodium Chloride (NS 1000 ml Inj) 1,000 ml @ 150 mls/hr Q6H40M IV Last administered on 03/05/17 04:58; Start 03/03/17 at 06:18 Sodium Chloride (NS Flush) 2 ml UNSCH PRN IV FLUSH FLUSH AFTER USING IV ACCESS ; Start 03/03/17 at 06:30 Sodium Chloride (NS Flush) 2 ml BID IV FLUSH Last administered on 03/05/17 09: 04; Start 03/03/17 at 09:00 Naloxone HCl (Narcan Inj) 0.4 mg UNSCH PRN IV SEE LABEL COMMENTS; Start at 06:30 Hydromorphone HCl (Dilaudid Pf Inj) 0.5 mg Q3H PRN IV PUSH pain >5; Start at 06:30; Stop 03/03/17 at 08:43; Status DC Morphine Sulfate (Morphine Inj) 2 mg Q3H PRN IV PUSH PAIN >5 Last administered on 03/04/17 15:22; Start 03/03/17 at 09:30; Stop 03/04/17 at 15:29; Status DC Folic Acid (Folate) 1 mg DAILY PO Last administered on 03/05/17 09:04; Start at 10:00 Enoxaparin Sodium (Lovenox Inj) 40 mg Q24H SQ ; Start 03/03/17 at 10:00 Diphenhydramine HCl (Benadryl) 25 mg Q6H PRN PO URTICARIA Last administered on 03/05/17 09:04; Start 03/03/17 at 09:30 Morphine Sulfate (Morphine Inj) 2 mg Q3H PRN IV PUSH PAIN >5 Last administered on 03/05/17 09:05; Start 03/04/17 at 15:30 A/P Assessment and Plan Sickle cell crisis Sickle cell anemia, acute on chronic - Patient with history of sickle cell anemia. Unrelieved by [place] from home. - continue IV fluids for hydration - s/p PRBC transfusion with improved H/H. - continue with pain control. - hematology evaluation appreciated. Asthma, not in exacerbation - Chest x-ray showed no acute disease - DuoNeb's when necessary Leukocytosis - Possibly related to sickle cell crisis DVT prop Lovejaelynx Alexandria Deleon MD Mar 05, 2017 10:36
[2017-03-05] MEDS: SODIUM CHLOR 0.45% 1000 ML INJ 1,000 ML IV SCH (13:32)
--- NOTE | 2017-03-05 16:17 | MB ---
cc: JENNI MANN MD DATE OF CONSULTATION: 03/05/2017 HEMATOLOGY CONSULTATION ALSO KNOWN TATYANA LICONA DATE OF : 1990 HEMATOLOGIC DIAGNOSIS Hemoglobin sickle-cell disease. REASON FOR CONSULTATION Sickle cell crisis uncomplicated by acute chest syndrome, acute stroke or venous thromboembolism. CHIEF COMPLAINT The patient reports arm, back and hip pain which has been ongoing for the past several days. She reports the sickle cell pain crisis was triggered by the unusually hot and humid weather as well as her most recent menstrual cycle. HISTORY OF PRESENT ILLNESS Ms. Licona is a 26-year-old female who is well-known to this practice, she most of the time uses her alias Tatyana. She was recently discharged from the [facility] for various reasons. At any rate, she has had frequent hospitalizations due to pain crises and had been under the care of Dr. Manpreet Darby for many years. The patient reports having had developed symptoms of joint aches and pains which were nonresponsive to her outpatient medications. The patient presented to the emergency department for further workup and management. At presentation her hemoglobin was noted to be slightly below her baseline of 7 g/dL; 6.5 at the time of admission. She was noted to be afebrile and was admitted to the hospital for supportive care including transfusions, oxygen supplementation and IV fluid hydration as well as pain control. Hematology has been asked to see her for optimization of management. PAST MEDICAL HISTORY 1. Hemoglobin sickle-cell disease. 2. Recurrent pain crises. 3. Asthma. PAST SURGICAL HISTORY 1. Cholecystectomy. 2. Multiple port placement and removal. FAMILY HISTORY Sickle cell trait. SOCIAL HISTORY Lives at home with her mother, she has a 4-year-old child as well. The patient is disabled. ALLERGIES PERCOCET. CURRENT INPATIENT MEDICATIONS 1. Half-normal saline 100 cc/hr. 2. Diphenhydramine 25 mg p.o. q.6 hours as needed for itching. 3. Lovenox 40 mg subcu q.24. 4. Folic acid 1 mg once a day. 5. Morphine sulfate 2 mg IV q.3 hours as needed for pain. REVIEW OF SYSTEMS A 13-point review of systems is obtained, the following are the pertinent positives and negatives: CONSTITUTIONAL: She denies fevers, chills, night sweats. She reports a good appetite and denies weight loss. HEENT: Denies headaches, blurry vision, difficulty swallowing, soreness in the throat. RESPIRATORY: Reports exertional dyspnea. Denies pleuritic chest pain. Denies hemoptysis. GASTROINTESTINAL: Denies hematochezia or melena. UROGENITAL: No complaints. GENERAL DENTIST/OWNER: No focal sensory or motor deficits. MUSCULOSKELETAL: Please see HPI for complaints of typical bony aches and pains involving her arms, back and legs as well as pelvis. PHYSICAL EXAMINATION VITAL SIGNS: Temperature 97.8 degrees Fahrenheit, heart rate 62 beats per minute, respiratory rate 16, blood pressure 118/69, O2 sats 98% on 2 liters nasal cannula. GENERAL PHYSICAL APPEARANCE: Ms. Licona is a young female, she is laying in bed and appears to be in no acute distress. HEENT: Head is atraumatic, normocephalic. Conjunctivae are pale. Sclerae are anicteric. EOMI. PERRLA. Oral exam - pale mucous membranes. Pharyngeal examination - no erythema noted. RESPIRATORY EXAM: Decreased right basilar breath sounds, good air movement over the left lung zones. CARDIOVASCULAR: Regular rate and rhythm. S1, S2. No obvious murmurs, rubs or gallops. ABDOMINAL EXAM: Protuberant belly, soft and nontender. No obvious organ enlargement. Positive bowel sounds. EXTREMITIES: No pretibial edema. No calf tenderness. GENERAL DENTIST/OWNER: No focal sensory or motor deficits. LABORATORY FINDINGS CBC dated 03/05/2017: WBC count 12.5, hemoglobin 7.4 g/dL, hematocrit 21.3%, platelet count 383, absolute neutrophil count is 3.4. Chemistries: Sodium 141, potassium 3.9, chloride 112, bicarb 23.6, BUN 6, creatinine 0.57, EGFR 154, calcium 8. IMAGING STUDIES Chest x-ray dated 03/03/2017: No acute disease identified. ASSESSMENT Ms. Licona is a 26-year-old female with a diagnosis of hemoglobin sickle-cell disease. She had been on outpatient therapy with hydroxyurea at a dose of what she recalls to be 1000 mg once daily. She comes in with a typical pain crisis, the pain crises was provoked by the warm and humid weather as well as her most recent menstrual cycle. She tells me this pattern is quite typical. She denies symptoms of chest pain, shortness of breath or fevers. She has not had any neurosensory or motor deficits to imply a stroke. RECOMMENDATIONS 1. Uncomplicated sickle-cell crisis: 2 units of packed red blood cell transfusion noted. I would recommend monitoring her going forward unless she has some acute complicating factor that develops prior to giving her additional red cell transfusions. I would continue hydration with a hypotonic saline solution. Incentive spirometry has been ordered. As needed pain medications. Intravenously. 2. Resume hydroxyurea once her sickle cell crisis is resolved. 3. She has been encouraged to establish followup with a hematology practice outside of [place] such as [facility] or [facility]. The patient has been formerly discharged from our outpatient practice due to various issues which have been charted in her outpatient records. 4. Lovenox 40 mg subcu q.24 hours; continue this. MD RAYNE Hunter/FRANC /1:15 PM /3:49 PM
[2017-03-05] MEDS: MORPHINE SULFATE 4 MG/ML INJ IV PRN ×2 (17:55→21:03)
[2017-03-06] VITALS (7 sets, daily range): BP systolic 117–138; BP diastolic 29–74; PULSE 63–94; RESP 16–20; TEMP 98.2–98.9; O2SAT 94–98
[2017-03-06] MEDS: SODIUM CHLORIDE 0.9% FLUSH 10 ML FLUSH IV FLUSH PRN ×2 (00:18→02:55)
[2017-03-06] MEDS: MORPHINE SULFATE 4 MG/ML INJ IV PRN ×7 (00:18→21:36)
[2017-03-06] MEDS: diphenhydrAMINE HCL 25 MG CAP PO PRN ×3 (00:19→20:09)
[2017-03-06] MEDS: SODIUM CHLOR 0.45% 1000 ML INJ 1,000 ML IV SCH ×3 (00:33→20:10)
[2017-03-06] MEDS: FOLIC ACID 1 MG TAB PO SCH (08:47)
[2017-03-06] MEDS: SODIUM CHLORIDE 0.9% FLUSH 10 ML FLUSH IV FLUSH SCH ×2 (08:48→21:36)
[2017-03-06] MEDS: ENOXAPARIN SODIUM 40 MG/0.4 ML SYRINGE SQ SCH (10:00)
--- NOTE | 2017-03-06 10:34 | HHI.PR ---
Subjective Remarks in no acute distress. pain is getting better slowly. no other complaints. Objective Vitals Vital Signs Date Time Temp Pulse Resp B/P Pulse Ox O2 Delivery O2 Flow Rate FiO2 03/06/17 08:58 75 03/06/17 08:00 94 20 117/63 98 03/06/17 04:32 98.2 74 16 117/68 96 03/06/17 00:44 98.3 90 16 117/61 96 03/05/17 20:00 97.5 75 16 131/76 95 03/05/17 18:03 18 03/05/17 16:50 98.2 80 16 131/79 97 03/05/17 15:30 17 03/05/17 12:44 97.8 62 16 118/69 98 I/O 03/05/17 03/05/17 03/05/17 03/06/17 03/06/17 03/06/17 07:00 15:00 23:00 07:00 15:00 23:00 Intake Total 2120 ml 1876 ml 480 ml 847 ml Output Total 500 ml Balance 2120 ml 1376 ml 480 ml 847 ml Intake Oral 720 ml 800 ml 480 ml IV Total 1400 ml 1076 ml 847 ml Output Urine Total 500 ml # Voids 6 5 # Bowel Movements 1 Result Diagram: 03/05/17 0630 03/04/17 0625 Imaging Last Impressions Chest X-Ray 03/03/17 0418 Signed Impressions: Service Date/Time: February 04:27 - CONCLUSION: No acute disease. Ted Bojorquez MD Objective Remarks GENERAL: This is a well-nourished, well-developed patient, in no apparent distress. CARDIOVASCULAR: Regular rate and regular rhythm without murmurs, gallops, or rubs. RESPIRATORY: Clear to auscultation. Breath sounds equal bilaterally. No wheezes , rales, or rhonchi. GASTROINTESTINAL: Abdomen soft, non-tender, nondistended. Normal, active bowel sounds MUSCULOSKELETAL: Extremities without clubbing, cyanosis, or edema. NEURO: Alert & Oriented x4 to person, place, time, situation. Moves all ext x4 Procedures none Medications and IVs Current Medications Sodium Chloride 2 ml 2 ml UNSCH PRN IVF FLUSH AFTER USING IV ACCESS Last administered on 03/03/17t 04:58; Start 03/03/17 at 04:30; Stop 03/03/17 at 06:30; Status DC Sodium Chloride 1,000 ml @ 1,000 mls/hr Q1H ONCE IV Last administered on 04:57; Start 03/03/17 at 04:18; Stop 03/03/17 at 05:17; Status DC Sodium Chloride (NS 1000 ml Inj) 1,000 ml @ 999 mls/hr BOLUS ONCE IV Last administered on 03/03/17 04:58; Start 03/03/17 at 04:30; Stop 03/03/17 at 05:30; Status DC Ketorolac Tromethamine (Toradol Inj) 30 mg ONCE ONCE IV PUSH Last administered on 03/03/17 04:58; Start 03/03/17 at 04:30; Stop 03/03/17 at 04:31; Status DC Morphine Sulfate (Morphine Inj) 8 mg ONCE ONCE IV PUSH Last administered on 04:58; Start 03/03/17 at 04:30; Stop 03/03/17 at 04:31; Status DC Morphine Sulfate (Morphine Inj) 8 mg ONCE ONCE IV PUSH Last administered on 06:14; Start 03/03/17 at 05:45; Stop 03/03/17 at 05:46; Status DC Diphenhydramine HCl 25 mg 25 mg ONCE ONCE IV PUSH Last administered on 06:13; Start 03/03/17 at 05:45; Stop 03/03/17 at 05:46; Status DC Sodium Chloride 250 ml @ 15 mls/hr ONCE ONCE IV Last administered on 09:17; Start 03/03/17 at 05:45; Stop 03/03/17 at 22:24; Status DC Sodium Chloride (NS 1000 ml Inj) 1,000 ml @ 150 mls/hr Q6H40M IV Last administered on 03/05/17 11:38; Start 03/03/17 at 06:18; Stop 03/05/17 at 13:07; Status DC Sodium Chloride (NS Flush) 2 ml UNSCH PRN IV FLUSH FLUSH AFTER USING IV ACCESS Last administered on 03/06/17 02:55; Start 03/03/17 at 06:30 Sodium Chloride (NS Flush) 2 ml BID IV FLUSH Last administered on 03/05/17 21: 03; Start 03/03/17 at 09:00 Naloxone HCl (Narcan Inj) 0.4 mg UNSCH PRN IV SEE LABEL COMMENTS; Start at 06:30 Hydromorphone HCl (Dilaudid Pf Inj) 0.5 mg Q3H PRN IV PUSH pain >5; Start at 06:30; Stop 03/03/17 at 08:43; Status DC Morphine Sulfate (Morphine Inj) 2 mg Q3H PRN IV PUSH PAIN >5 Last administered on 03/04/17 15:22; Start 03/03/17 at 09:30; Stop 03/04/17 at 15:29; Status DC Folic Acid (Folate) 1 mg DAILY PO Last administered on 03/06/17 08:47; Start at 10:00 Enoxaparin Sodium (Lovenox Inj) 40 mg Q24H SQ ; Start 03/03/17 at 10:00 Diphenhydramine HCl (Benadryl) 25 mg Q6H PRN PO URTICARIA Last administered on 03/06/17 00:19; Start 03/03/17 at 09:30 Morphine Sulfate 2 mg 2 mg Q3H PRN IV PUSH PAIN >5 Last administered on 15:17; Start 03/04/17 at 15:30; Stop 03/05/17 at 15:30; Status DC Sodium Chloride (1/2 NS 1000 ml Inj) 1,000 ml @ 100 mls/hr Q10H IV Last administered on 03/06/17 00:33; Start 03/05/17 at 13:15 Morphine Sulfate (Morphine Inj) 2 mg Q3H PRN IV PAIN 1-10 Last administered on 03/06/17 08:48; Start 03/05/17 at 15:45 A/P Assessment and Plan Sickle cell crisis Sickle cell anemia, acute on chronic - Patient with history of sickle cell anemia. Unrelieved by [place] from home. - continue IV fluids for hydration - s/p PRBC transfusion with improved H/H. - continue with pain control; will start po pain meds- keep morphine for breakthrough pain. - hematology evaluation appreciated. Asthma, not in exacerbation - Chest x-ray showed no acute disease - DuoNeb's when necessary Leukocytosis - Possibly related to sickle cell crisis DVT prop Alexandria Maurer MD Mar 06, 2017 10:33
[2017-03-06] MEDS ORDERED: ACETAMINOPHEN/HYDROcodone 325 MG/5 MG TAB PO PRN (10:45)
[2017-03-06] MEDS: ACETAMINOPHEN/HYDROcodone 325 MG/5 MG TAB PO PRN ×2 (12:21→20:09)
[2017-03-07] VITALS: BP 109/59; PULSE 77; RESP 18; TEMP 98.8; O2SAT 94
[2017-03-07] MEDS: MORPHINE SULFATE 4 MG/ML INJ IV PRN ×3 (01:53→09:31)
[2017-03-07] MEDS: SODIUM CHLORIDE 0.9% FLUSH 10 ML FLUSH IV FLUSH PRN ×2 (01:53→05:26)
[2017-03-07 04:00] VITALS: BP 124/61; PULSE 77; RESP 18; TEMP 98.6; O2SAT 96
[2017-03-07] MEDS: diphenhydrAMINE HCL 25 MG CAP PO PRN ×3 (05:25→21:20)
[2017-03-07] MEDS: SODIUM CHLOR 0.45% 1000 ML INJ 1,000 ML IV SCH ×2 (05:29→15:15)
[2017-03-07 05:54] LABS: AUTOMATED NEUTROPHIL # 6.2 TH/MM3 (1.8-7.7); BASOPHIL # 0.1 TH/MM3 (0-0.2); BASOPHIL % 0.4 % (0.0-2.0); EOSINOPHIL # 0.8 TH/MM3 (0-0.4); EOSINOPHIL % 6.5 % (0.0-4.0); HEMATOCRIT 22.4 % (35.0-46.0); HEMO FLAGS DIFF FINAL; LYMPH % 28.6 % (9.0-44.0); LYMPHOCYTE # 3.4 TH/MM3 (1.0-4.8); MEAN CELL VOLUME 85.2 FL (80.0-100.0); MEAN CORPUSCULAR HEMOGLOBIN 29.5 PG (27.0-34.0); MEAN CORPUSCULAR HGB CONC 34.6 % (32.0-36.0); MONO % 11.5 % (0.0-8.0); PLATELET COUNT 403 TH/MM3 (150-450); RED BLOOD COUNT 2.63 MIL/MM3 (4.00-5.30); RED CELL DISTRIBUTION WIDTH 17.5 % (11.6-17.2); WHITE BLOOD COUNT 11.7 TH/MM3 (4.0-11.0)
[2017-03-07 08:34] VITALS: BP 109/60; PULSE 89; RESP 17; TEMP 98; O2SAT 95
[2017-03-07] MEDS: ENOXAPARIN SODIUM 40 MG/0.4 ML SYRINGE SQ SCH (09:29)
[2017-03-07] MEDS: FOLIC ACID 1 MG TAB PO SCH (09:29)
[2017-03-07] MEDS: SODIUM CHLORIDE 0.9% FLUSH 10 ML FLUSH IV FLUSH SCH ×2 (09:33→21:20)
[2017-03-07 11:32] VITALS: PULSE 63
[2017-03-07 12:02] VITALS: BP 117/66; PULSE 66; RESP 18; TEMP 98.8; O2SAT 94
--- NOTE | 2017-03-07 12:20 | HHI.PR ---
Subjective Remarks pain is better today. no new complaints. Objective Vitals Vital Signs Date Time Temp Pulse Resp B/P Pulse Ox O2 Delivery O2 Flow Rate FiO2 03/07/17 12:02 98.8 66 18 117/66 94 03/07/17 11:32 63 03/07/17 08:34 98.0 89 17 109/60 95 03/07/17 04:00 98.6 77 18 124/61 96 03/07/17 00:00 98.8 77 18 109/59 94 03/06/17 20:00 98.9 65 18 138/74 98 03/06/17 16:00 67 20 118/72 95 I/O 03/06/17 03/06/17 03/06/17 03/07/17 03/07/17 03/07/17 07:00 15:00 23:00 07:00 15:00 23:00 Intake Total 480 ml 847 ml 360 ml 360 ml Balance 480 ml 847 ml 360 ml 360 ml Intake Oral 480 ml 360 ml 360 ml IV Total 847 ml # Voids 5 2 2 1 # Bowel Movements 0 1 Result Diagram: 03/07/17 0530 03/04/17 0625 Imaging Last Impressions Chest X-Ray 03/03/17 0418 Signed Impressions: Service Date/Time: February 04:27 - CONCLUSION: No acute disease. Ted Bojorquez MD Objective Remarks GENERAL: This is a well-nourished, well-developed patient, in no apparent distress. CARDIOVASCULAR: Regular rate and regular rhythm without murmurs, gallops, or rubs. RESPIRATORY: Clear to auscultation. Breath sounds equal bilaterally. No wheezes , rales, or rhonchi. GASTROINTESTINAL: Abdomen soft, non-tender, nondistended. Normal, active bowel sounds MUSCULOSKELETAL: Extremities without clubbing, cyanosis, or edema. NEURO: Alert & Oriented x4 to person, place, time, situation. Moves all ext x4 Procedures none Medications and IVs Current Medications Sodium Chloride 2 ml 2 ml UNSCH PRN IVF FLUSH AFTER USING IV ACCESS Last administered on 03/03/17t 04:58; Start 03/03/17 at 04:30; Stop 03/03/17 at 06:30; Status DC Sodium Chloride 1,000 ml @ 1,000 mls/hr Q1H ONCE IV Last administered on 04:57; Start 03/03/17 at 04:18; Stop 03/03/17 at 05:17; Status DC Sodium Chloride (NS 1000 ml Inj) 1,000 ml @ 999 mls/hr BOLUS ONCE IV Last administered on 03/03/17 04:58; Start 03/03/17 at 04:30; Stop 03/03/17 at 05:30; Status DC Ketorolac Tromethamine (Toradol Inj) 30 mg ONCE ONCE IV PUSH Last administered on 03/03/17 04:58; Start 03/03/17 at 04:30; Stop 03/03/17 at 04:31; Status DC Morphine Sulfate (Morphine Inj) 8 mg ONCE ONCE IV PUSH Last administered on 04:58; Start 03/03/17 at 04:30; Stop 03/03/17 at 04:31; Status DC Morphine Sulfate (Morphine Inj) 8 mg ONCE ONCE IV PUSH Last administered on 06:14; Start 03/03/17 at 05:45; Stop 03/03/17 at 05:46; Status DC Diphenhydramine HCl 25 mg 25 mg ONCE ONCE IV PUSH Last administered on 06:13; Start 03/03/17 at 05:45; Stop 03/03/17 at 05:46; Status DC Sodium Chloride 250 ml @ 15 mls/hr ONCE ONCE IV Last administered on 09:17; Start 03/03/17 at 05:45; Stop 03/03/17 at 22:24; Status DC Sodium Chloride (NS 1000 ml Inj) 1,000 ml @ 150 mls/hr Q6H40M IV Last administered on 03/05/17 11:38; Start 03/03/17 at 06:18; Stop 03/05/17 at 13:07; Status DC Sodium Chloride (NS Flush) 2 ml UNSCH PRN IV FLUSH FLUSH AFTER USING IV ACCESS Last administered on 03/07/17 05:26; Start 03/03/17 at 06:30 Sodium Chloride (NS Flush) 2 ml BID IV FLUSH Last administered on 03/07/17 09: 33; Start 03/03/17 at 09:00 Naloxone HCl (Narcan Inj) 0.4 mg UNSCH PRN IV SEE LABEL COMMENTS; Start at 06:30 Hydromorphone HCl (Dilaudid Pf Inj) 0.5 mg Q3H PRN IV PUSH pain >5; Start at 06:30; Stop 03/03/17 at 08:43; Status DC Morphine Sulfate (Morphine Inj) 2 mg Q3H PRN IV PUSH PAIN >5 Last administered on 03/04/17 15:22; Start 03/03/17 at 09:30; Stop 03/04/17 at 15:29; Status DC Folic Acid (Folate) 1 mg DAILY PO Last administered on 03/07/17 09:29; Start 03/03/17 at 10:00 Enoxaparin Sodium (Lovenox Inj) 40 mg Q24H SQ ; Start 03/03/17 at 10:00 Diphenhydramine HCl (Benadryl) 25 mg Q6H PRN PO URTICARIA Last administered on 03/07/17 05:25; Start 03/03/17 at 09:30 Morphine Sulfate 2 mg 2 mg Q3H PRN IV PUSH PAIN >5 Last administered on 15:17; Start 03/04/17 at 15:30; Stop 03/05/17 at 15:30; Status DC Sodium Chloride (1/2 NS 1000 ml Inj) 1,000 ml @ 100 mls/hr Q10H IV Last administered on 03/07/17 05:29; Start 03/05/17 at 13:15 Morphine Sulfate (Morphine Inj) 2 mg Q3H PRN IV BREAKTHROUGH PAIN Last administered on 03/07/17 09:31; Start 03/05/17 at 15:45 Acetaminophen/ Hydrocodone Bitart ([place] 5-325 Mg) 1 tab Q4H PRN PO PAIN 1-5; Start 03/06/17 at 10:45 Acetaminophen/ Hydrocodone Bitart ([place] 5-325 Mg) 2 tab Q4H PRN PO PAIN 6-10 Last administered on 03/06/17 20:09; Start 03/06/17 at 10:45 A/P Assessment and Plan Sickle cell crisis Sickle cell anemia, acute on chronic - Patient with history of sickle cell anemia. Unrelieved by [place] from home. - continue IV fluids for hydration - s/p PRBC transfusion with improved and stable H/H. - continue with pain control. - hematology evaluation appreciated. Asthma, not in exacerbation - Chest x-ray showed no acute disease - DuoNeb's when necessary Leukocytosis - Possibly related to sickle cell crisis DVT prop Lovenox Discharge Planning dc home tomorrow if pain continues to improve. Alexandria Deleon MD Mar 07, 2017 12:20
[2017-03-07] MEDS: MORPHINE SULFATE 8 MG/ML INJ IV PUSH PRN ×3 (12:49→21:21)
[2017-03-07 15:36] VITALS: BP 115/69; PULSE 75; RESP 18; TEMP 98.6; O2SAT 96
[2017-03-08] VITALS: BP 128/87; PULSE 64; RESP 20; TEMP 98.8; O2SAT 95
[2017-03-08] MEDS: MORPHINE SULFATE 8 MG/ML INJ IV PUSH PRN ×4 (01:21→13:59)
[2017-03-08] MEDS: SODIUM CHLOR 0.45% 1000 ML INJ 1,000 ML IV SCH (01:24)
[2017-03-08] MEDS: diphenhydrAMINE HCL 25 MG CAP PO PRN ×2 (05:49→14:00)
[2017-03-08 06:53] VITALS: BP 125/57; PULSE 68; RESP 20; TEMP 98.2; O2SAT 96
[2017-03-08 08:12] VITALS: BP 114/65; PULSE 73; RESP 16; TEMP 97; O2SAT 95
[2017-03-08] MEDS: SODIUM CHLORIDE 0.9% FLUSH 10 ML FLUSH IV FLUSH SCH (09:00)
[2017-03-08] MEDS: ENOXAPARIN SODIUM 40 MG/0.4 ML SYRINGE SQ SCH (10:00)
[2017-03-08] MEDS: FOLIC ACID 1 MG TAB PO SCH (10:11)
--- NOTE | 2017-03-08 10:36 | HHI.PR ---
Subjective Remarks is more comfortable and pain is better today. no new complaints. Objective Vitals Vital Signs Date Time Temp Pulse Resp B/P Pulse Ox O2 Delivery O2 Flow Rate FiO2 03/08/17 08:12 97.0 73 16 114/65 95 03/08/17 06:53 98.2 68 20 125/57 96 03/08/17 05:54 16 03/08/17 00:00 98.8 64 20 128/87 95 03/07/17 15:36 98.6 75 18 115/69 96 03/07/17 12:02 98.8 66 18 117/66 94 03/07/17 11:32 63 I/O 03/07/17 03/07/17 03/07/17 03/08/17 03/08/17 03/08/17 07:00 15:00 23:00 07:00 15:00 23:00 Intake Total 360 ml 240 ml 480 ml Balance 360 ml 240 ml 480 ml Intake Oral 360 ml 240 ml 480 ml # Voids 1 3 3 3 # Bowel Movements 0 0 Result Diagram: 03/07/17 0530 03/04/17 0625 Imaging Last Impressions Chest X-Ray 03/03/17 0418 Signed Impressions: Service Date/Time: February 04:27 - CONCLUSION: No acute disease. Ted Bojorquez MD Objective Remarks GENERAL: This is a well-nourished, well-developed patient, in no apparent distress. CARDIOVASCULAR: Regular rate and regular rhythm without murmurs, gallops, or rubs. RESPIRATORY: Clear to auscultation. Breath sounds equal bilaterally. No wheezes , rales, or rhonchi. GASTROINTESTINAL: Abdomen soft, non-tender, nondistended. Normal, active bowel sounds MUSCULOSKELETAL: Extremities without clubbing, cyanosis, or edema. NEURO: Alert & Oriented x4 to person, place, time, situation. Moves all ext x4 Procedures none Medications and IVs Current Medications Sodium Chloride 2 ml 2 ml UNSCH PRN IVF FLUSH AFTER USING IV ACCESS Last administered on 03/03/17 04:58; Start 03/03/17 at 04:30; Stop 03/03/17 at 06:30; Status DC Sodium Chloride 1,000 ml @ 1,000 mls/hr Q1H ONCE IV Last administered on 04:57; Start 03/03/17 at 04:18; Stop 03/03/17 at 05:17; Status DC Sodium Chloride (NS 1000 ml Inj) 1,000 ml @ 999 mls/hr BOLUS ONCE IV Last administered on 03/03/17 04:58; Start 03/03/17 at 04:30; Stop 03/03/17 at 05:30; Status DC Ketorolac Tromethamine (Toradol Inj) 30 mg ONCE ONCE IV PUSH Last administered on 03/03/17 04:58; Start 03/03/17 at 04:30; Stop 03/03/17 at 04:31; Status DC Morphine Sulfate (Morphine Inj) 8 mg ONCE ONCE IV PUSH Last administered on 04:58; Start 03/03/17 at 04:30; Stop 03/03/17 at 04:31; Status DC Morphine Sulfate (Morphine Inj) 8 mg ONCE ONCE IV PUSH Last administered on 06:14; Start 03/03/17 at 05:45; Stop 03/03/17 at 05:46; Status DC Diphenhydramine HCl 25 mg 25 mg ONCE ONCE IV PUSH Last administered on 06:13; Start 03/03/17 at 05:45; Stop 03/03/17 at 05:46; Status DC Sodium Chloride 250 ml @ 15 mls/hr ONCE ONCE IV Last administered on 09:17; Start 03/03/17 at 05:45; Stop 03/03/17 at 22:24; Status DC Sodium Chloride (NS 1000 ml Inj) 1,000 ml @ 150 mls/hr Q6H40M IV Last administered on 03/05/17 11:38; Start 03/03/17 at 06:18; Stop 03/05/17 at 13:07; Status DC Sodium Chloride (NS Flush) 2 ml UNSCH PRN IV FLUSH FLUSH AFTER USING IV ACCESS Last administered on 03/07/17 05:26; Start 03/03/17 at 06:30 Sodium Chloride (NS Flush) 2 ml BID IV FLUSH Last administered on 03/08/17 09: 00; Start 03/03/17 at 09:00 Naloxone HCl (Narcan Inj) 0.4 mg UNSCH PRN IV SEE LABEL COMMENTS; Start at 06:30 Hydromorphone HCl (Dilaudid Pf Inj) 0.5 mg Q3H PRN IV PUSH pain >5; Start at 06:30; Stop 03/03/17 at 08:43; Status DC Morphine Sulfate (Morphine Inj) 2 mg Q3H PRN IV PUSH PAIN >5 Last administered on 03/04/17 15:22; Start 03/03/17 at 09:30; Stop 03/04/17 at 15:29; Status DC Folic Acid (Folate) 1 mg DAILY PO Last administered on 03/08/17 10:11; Start 03/03/17 at 10:00 Enoxaparin Sodium (Lovenox Inj) 40 mg Q24H SQ ; Start 03/03/17 at 10:00 Diphenhydramine HCl (Benadryl) 25 mg Q6H PRN PO URTICARIA Last administered on 03/08/17 05:49; Start 03/03/17 at 09:30 Morphine Sulfate 2 mg 2 mg Q3H PRN IV PUSH PAIN >5 Last administered on 15:17; Start 03/04/17 at 15:30; Stop 03/05/17 at 15:30; Status DC Sodium Chloride (1/2 NS 1000 ml Inj) 1,000 ml @ 100 mls/hr Q10H IV Last administered on 03/08/17 01:24; Start 03/05/17 at 13:15 Morphine Sulfate (Morphine Inj) 2 mg Q3H PRN IV BREAKTHROUGH PAIN Last administered on 03/07/17 09:31; Start 03/05/17 at 15:45; Stop 03/07/17 at 12:39 ; Status DC Acetaminophen/ Hydrocodone Bitart ([place] 5-325 Mg) 1 tab Q4H PRN PO PAIN 1-5; Start 03/06/17 at 10:45 Acetaminophen/ Hydrocodone Bitart ([place] 5-325 Mg) 2 tab Q4H PRN PO PAIN 6-10 Last administered on 03/06/17 20:09; Start 03/06/17 at 10:45 Morphine Sulfate (Morphine Inj) 2 mg Q4H PRN IV PUSH BREAKTHROUGH PAIN Last administered on 03/08/17 10:12; Start 03/07/17 at 12:45 A/P Assessment and Plan Sickle cell crisis Sickle cell anemia, acute on chronic - pain is better today -s/p PRBC transfusion with improved and stable H/H -hematology evaluation appreciated. -continue folic acid Asthma, not in exacerbation - Chest x-ray showed no acute disease - DuoNeb's when necessary Leukocytosis - Possibly related to sickle cell crisis DVT prop Lovenox Discharge Planning dc home this afternoon. see med list. f/u; pcp and hematology. d/w the patient. Alexandria Deleon MD Mar 08, 2017 10:36
[2017-03-08] MEDS ORDERED: FOLI1TAB6 PO (10:38)
[2017-03-08] MEDS ORDERED: HYDR-3535 PO (10:38)
--- NOTE | 2017-03-08 10:40 | HHI.DCPOC ---
Discharge Care Plan Diagnosis: (1) Sickle cell pain crisis Your Health Problems Are: Chronic Pain Goals to Promote Your Health * To prevent worsening of your condition and complications * To maintain your health at the optimal level Directions to Meet Your Goals Take your medications as prescribed Follow your dietary instruction Follow activity as directed Keep your appointments as scheduled Take your immunizations and boosters as scheduled If your symptoms worsen call your PCP, if no PCP go to Urgent Care Center or Emergency Room Smoking is Dangerous to Your Health. Avoid second hand smoke Call the 24-hour hour crisis hotline for domestic abuse at Alexandria Deleon MD Mar 08, 2017 10:39
--- NOTE | 2017-03-08 10:40 | HHI.DS ---
Discharge Summary Admission Date Mar 03, 2017 at 06:15 Discharge Date: Mar 08, 2017 Admitting Diagnosis Sickle cell pain crisis. (1) Sickle cell pain crisis ICD Code: D57.00 Diagnosis: Principal (2) Anemia ICD Code: D64.9 Diagnosis: Principal Procedures none Brief History - From Admission Written by Mariana Peres, acting as scribe for Dr. Deleon on 03/03/17 at 08: 30. Patient is a 26-year-old female with primary medical history of sickle cell anemia, asthma came into the hospital for severe generalized pain. Patient states pain started couple days ago, she takes Lortab 10 mg every 6 hours at home and has ran out 12 hours prior to being at the hospital. Reports she has her menstrual cycle and it's usually heavy. Patient also states that she gets increased pain with menstrual cycle. Pain described as "all over", rated as "real bad", improve with morphine medication. States she is previously being seen by Dr. Mares but says "They discharged all sickle cell patients." Patient reports shortness of breath but states she has asthma. She denies cough but states she occasionally would cough up phlegm greenish in color. Reports night sweats occasionally. Denies chest pain, palpitations, headaches, dizziness. Denies fevers, chills. Denies dysuria, abdominal pain, abdominal cramping, nausea, vomiting, diarrhea. CBC/BMP: 03/07/17 0530 03/04/17 0625 Significant Findings Laboratory Tests Test 03/07/17 05:30 White Blood Count 11.7 TH/MM3 (4.0-11.0) Red Blood Count 2.63 MIL/MM3 (4.00-5.30) Hemoglobin 7.8 GM/DL (11.6-15.3) Hematocrit 22.4 % (35.0-46.0) Red Cell Distribution Width 17.5 % (11.6-17.2) Monocytes (%) (Auto) 11.5 % (0.0-8.0) Eosinophils (%) (Auto) 6.5 % (0.0-4.0) Monocytes # (Auto) 1.4 TH/MM3 (0-0.9) Eosinophils # (Auto) 0.8 TH/MM3 (0-0.4) Imaging Last Impressions Chest X-Ray 03/03/17 0418 Signed Impressions: Service Date/Time: , March 03, 2017 04:27 - CONCLUSION: No acute disease. Ted Bojorquez MD PE at Discharge GENERAL: This is a well-nourished, well-developed patient, in no apparent distress. CARDIOVASCULAR: Regular rate and regular rhythm without murmurs, gallops, or rubs. RESPIRATORY: Clear to auscultation. Breath sounds equal bilaterally. No wheezes , rales, or rhonchi. GASTROINTESTINAL: Abdomen soft, non-tender, nondistended. Normal, active bowel sounds MUSCULOSKELETAL: Extremities without clubbing, cyanosis, or edema. NEURO: Alert & Oriented x4 to person, place, time, situation. Moves all ext x4 Hospital Course Sickle cell crisis Sickle cell anemia, acute on chronic - pain is better today -s/p PRBC transfusion with improved and stable H/H -hematology evaluation appreciated. -continue folic acid Asthma, not in exacerbation - Chest x-ray showed no acute disease - DuoNeb's when necessary Leukocytosis - Possibly related to sickle cell crisis DVT prop Lovenox Pt Condition on Discharge: Fair Discharge Disposition: Discharge Home Discharge Time: <= 30 minutes Discharge Instructions DIET: Follow Instructions for: As Tolerated, No Restrictions Activities you can perform: Regular-No Restrictions Follow up Referrals: Oncology PCP Follow-up New Medications: Hydrocodone-Acetaminophen (Lortab) 10-325 Mg Tab 1 TAB PO Q6H PRN PAIN #30 Ref 0 TAB Folic Acid (Folic Acid) 1 Mg Tablet 1 MG PO DAILY sickle cell Days 30 Ref 0 TAB Discontinued Medications: Folic Acid (Folic Acid) 400 Mcg Tab 5 MG PO DAILY Nutritional Supplement Ref 0 TAB Alexandria Dleeon MD Mar 08, 2017 10:40
== END 2017-03-08 18:48 | disposition home or self-care (01) | DRG 812 ==
LOC: NEPE 02:47 → NEDA 06:15 → N05B 12:19
PROVIDERS: ADMIT Internal Medicine; ATTEND Internal Medicine
PROC: 30233N1 Transfusion of Nonautologous Red Blood Cells into Peripheral Vein, Percutaneous Approach (ICD-10-PCS; principal; 2017-03-03)
DX: D57.00 Hb-SS disease with crisis, unspecified (principal); D72.829 Elevated white blood cell count, unspecified; J45.909 Unspecified asthma, uncomplicated
CPT/HCPCS: 36430; 71010; 80048; 81001; 84703; 85007; 85025; 85027; 85044; 86850; 86900; 86901; 86920; 96374; 96375; 96376; J1200; J1885; J2270; J7030; J7050; P9016

== ENCOUNTER 2017-06-15 00:46 | Emergency (ER) | payer MEDICAID ==
[~2017-06-15] VITALS: Ht 165.1 cm; Wt 70.0 kg
[~2017-06-15 00:46] MED LIST changes: -FOLI1TAB PO; +FOLI1TAB6 PO; +HYDR-3535 PO
[2017-06-15 00:47] VITALS: BP 120/58; PULSE 112; RESP 16; TEMP 99.8; O2SAT 95
[2017-06-15] MEDS ORDERED: SODIUM CHLOR 0.9% 1000 ML INJ 1,000 ML IV ONE ×2 (01:19→04:00)
[2017-06-15] MEDS ORDERED: SODIUM CHLORIDE 0.9% FLUSH 10 ML FLUSH IVF PRN (01:30)
--- NOTE | 2017-06-15 01:53 | PD ---
HPI Chief Complaint: Sickle Cell Time Seen by Provider: 01:05 Travel History International Travel<30 days: No Contact w/Intl Traveler<30days: No Traveled to known affect area: No History of Present Illness HPI The patient is a 26 year old female who presents to the [facility] emergency department with a history of sickle cell related pain that she reports began 3-4 days ago. The patient reports that the pain is similar to prior sickle cell pain crises. 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 She reports that she was discharged from her pay agent practice as they reported to her that they no longer will be seeing sickle cell patients. She is in the process of establishing with a new primary care physician and has an appointment scheduled for June with her new doctor. She cannot recall the name of her new doctor. She reports that she has pain all over related to her sickle cell. She denies having any joint swelling or redness. The patient reports that she has been taking Tylenol for pain, she also took her last Lortab 10 mg at 11 PM yesterday. On review of systems, the patient denies having any fevers, cough, congestion, neck pain, chest pain, abdominal pain, vomiting, diarrhea, urinary symptoms, or neurologic symptoms. She reports having intermittent shortness of breath related to her asthma that is no worse than usual. She reports that it is relieved with use of her rescue inhaler. [facility] Past Medical History Narrative Medical The patient's past medical history is significant for sickle cell anemia, CHF, asthma. Asthma: Yes Cancer: No Cardiovascular Problems: Yes (CHF) Congestive Heart Failure: Yes Endocrine: No Gastrointestinal Disorders: Yes Genitourinary: No Hypertension: Yes Immune Disorder: No Musculoskeletal: No Neurologic: No Psychiatric: No Reproductive: No Respiratory: Yes Sickle Cell Disease: Yes (CURRENT) Tetanus Vaccination: < 5 Years ?: Unknown LMP: 06/03/17 : 0 Past Surgical History Narrative Surgical The patient's past surgical history is significant for infusaport placement and removal x2, cholecystectomy. Abdominal Surgery: Yes (GALLBLADDER REMOVAL) Cardiac Surgery: No Cholecystectomy: Yes Ear Surgery: No Endocrine Surgery: No Eye Surgery: No Genitourinary Surgery: No Gynecologic Surgery: No Oral Surgery: No Thoracic Surgery: No Other Surgery: Yes (CHOLELITHIASIS) Social History Alcohol Use: No Tobacco Use: No Substance Use: No Allergies-Medications (Allergen,Severity, Reaction): Coded Allergies: acetaminophen (Unverified Allergy, Severe, 04/13/17) oxycodone (Unverified Allergy, Severe, 04/13/17) Reported Meds & Prescriptions Reported Meds & Active Scripts Active Lortab (Hydrocodone-Acetaminophen) 10-325 Mg Tab 1 Tab PO Q6H PRN Folic Acid 1 Mg Tablet 1 Mg PO DAILY 30 Days Review of Systems Except as stated in HPI: all other systems reviewed are Neg General / Constitutional: No: Fever Eyes: No: Visual changes HENT: No: Headaches Cardiovascular: No: Chest Pain or Discomfort Respiratory: No: Shortness of Breath Gastrointestinal: Positive: Nausea, Diarrhea (2 days ago, 1-2 per day.), No: Vomiting, Hematemesis, Hematochezia Genitourinary: No: Dysuria Musculoskeletal: Positive: Myalgias, Arthralgias, Pain Skin: No Rash Neurologic: No: Weakness Psychiatric: No: Depression Endocrine: No: Polydipsia Hematologic/Lymphatic: No: Easy Bruising Physical Exam Narrative General: The patient is a well-developed well-nourished female in no acute distress. Head and Neck exam: Head is normocephalic atraumatic. Eyes: EOMI, pupils are equal round and reactive to light. Nose: Midline septum with pink mucous membranes Mouth: Dentition unremarkable. Moist mucus membranes. Posterior oropharynx is not erythematous. No tonsillar hypertrophy. Uvula midline. Airway patent. Neck: No palpable lymphadenopathy. No nuchal rigidity. No thyromegaly. Cardiovascular: Regular rate and rhythm without murmurs, gallops, or rubs. Lungs: Clear to auscultation bilaterally. No wheezes, rhonchi, or rales. Abdomen: Soft, without tenderness to palpation in all 4 quadrants of the abdomen. No guarding, rebound, or rigidity. Normal bowel sounds are audible. No tenderness on palpation of McBurney's point. Negative Olivas's sign. Extremities: No clubbing, cyanosis, or edema. 2+ pulses in all 4 extremities. No calf tenderness on palpation. No joint swelling or erythema. She has full range of motion of all of her extremities and joints without deformity or crepitus. Back: No spinous process tenderness to palpation. No costovertebral angle tenderness to palpation. Neurologic Exam: Grossly nonfocal. Skin Exam: No rash noted. Intact skin that is warm and dry. Data Data Last Documented VS Vital Signs Date Time Temp Pulse Resp B/P (MAP) Pulse Ox O2 Delivery O2 Flow Rate FiO2 06/15/17 02:29 99 Room Air 06/15/17 00:47 99.8 112 16 120/58 (78) Orders Orders Complete Blood Count With Diff (06/15/17 01:19) Comprehensive Metabolic Panel (06/15/17 01:19) Retic Count (06/15/17 01:19) Ecg Monitoring (06/15/17:19) Iv Access Insert/Monitor (06/15/17:19) Oximetry (06/15/17:19) Oxygen Administration (06/15/17:19) Sodium Chloride 0.9% Flush (Ns Flush) (06/15/17 01:30) Sodium Chlor 0.9% 1000 Ml Inj (Ns 1000 M (06/15/17 01:19) Hydromorphone Pf Inj (Dilaudid Pf Inj) (06/15/17 02:00) Diphenhydramine Inj (Benadryl Inj) (06/15/17 02:00) Ondansetron Inj (Zofran Inj) (06/15/17 02:00) Urinalysis - C+S If Indicated (06/15/17 02:50) Chest, Single Ap (06/15/17 02:50) Ed Urine Pregnancytest Poc (06/15/17 02:50) Sodium Chlor 0.9% 1000 Ml Inj (Ns 1000 M (06/15/17 04:00) Hydromorphone Pf Inj (Dilaudid Pf Inj) (06/15/17 04:00) Labs Laboratory Tests Test 06/15/17 02:00 White Blood Count 18.2 TH/MM3 Red Blood Count 2.29 MIL/MM3 Hemoglobin 6.9 GM/DL Hematocrit 19.4 % Mean Corpuscular Volume 85.0 FL Mean Corpuscular Hemoglobin 30.1 PG Mean Corpuscular Hemoglobin Concent 35.4 % Red Cell Distribution Width 17.8 % Platelet Count 457 TH/MM3 Mean Platelet Volume 8.2 FL Neutrophils (%) (Auto) 66.1 % Lymphocytes (%) (Auto) 20.5 % Monocytes (%) (Auto) 10.0 % Eosinophils (%) (Auto) 1.8 % Basophils (%) (Auto) 1.6 % Neutrophils # (Auto) 12.0 TH/MM3 Lymphocytes # (Auto) 3.7 TH/MM3 Monocytes # (Auto) 1.8 TH/MM3 Eosinophils # (Auto) 0.3 TH/MM3 Basophils # (Auto) 0.3 TH/MM3 CBC Comment AUTO DIFF Differential Comment AUTO DIFF CONFIRMED Sickle Cells 1+ Reticulocyte Count 12.6 % Absolute Reticulocyte Count 287.3 MIL/L Blood Urea Nitrogen 7 MG/DL Creatinine 0.91 MG/DL Random Glucose 102 MG/DL Total Protein 7.8 GM/DL Albumin 4.0 GM/DL Calcium Level 8.4 MG/DL Alkaline Phosphatase 77 U/L Aspartate Amino Transf (AST/SGOT) 26 U/L Alanine Aminotransferase (ALT/SGPT) 15 U/L Total Bilirubin 2.1 MG/DL Sodium Level 142 MEQ/L Potassium Level 3.3 MEQ/L Chloride Level 112 MEQ/L Carbon Dioxide Level 22.2 MEQ/L Anion Gap 8 MEQ/L Estimat Glomerular Filtration Rate 90 ML/MIN [facility] Medical Decision Making Medical Screen Exam Complete: Yes Emergency Medical Condition: Yes Medical Record Reviewed: Yes Differential Diagnosis Sickle cell pain crisis, versus arthritis, versus tendinitis, versus viral syndrome Narrative Course During the course of the patients emergency department visit, the patients history, examination, and differential diagnosis were reviewed with the patient. The patient had IV access obtained and blood work sent for analysis. The patient was placed on a healthcare corporate account director with oximetry and blood pressure monitoring. The patient was initially provided normal saline 1 L IV fluid bolus, hydromorphone 1 mg IV for pain, Zofran 4 mg IV, Benadryl 25 mg IV for itching. The patient reported improvement in her pain level, however she did continue to have some residual pain. The patient was given an additional normal saline 500 mL bolus, hydromorphone 0.5 mg IV. The patients laboratory studies were reviewed and remarkable for a white count of 18.2, hemoglobin 6.9, and compared to previously her hemoglobin was 7 at discharge during her last admission, he platelets 457, monocytes 10. Monocytes are elevated which could be related to a viral syndrome as the patient reports that she has had some diarrhea. Reticulocyte count 12.6, CMP is remarkable for potassium of 3.3 which was supplemented orally, chloride 112, total bilirubin 2.1, calcium 8.4 Radiology studies were reviewed and remarkable for a chest x-ray that shows cardiomegaly, no acute cardiopulmonary disease. The patient will be discharged home with a prescription for a short supply of Lortab 10 which she reports she has taken in the past related to sickle cell pain crisis. She is encouraged to follow up with her primary care physician as soon as possible, preferably within the next week. The patient is resting comfortably and feels better, is alert and in no distress. The patients results and examination findings were discussed with the patient. The repeat examination is unremarkable and benign. The history, exam, diagnostic testing, and current condition do not suggest any significant pathology to warrant further testing, continued ED treatment, admission, or surgical evaluation at this point. The vital signs have been stable. The patient does not have uncontrollable pain, intractable vomiting, or other significant symptoms. The patient's condition is stable and appropriate for discharge. The patient will pursue further outpatient evaluation with a primary care physician or other designated or consulting physician as indicated in the discharge instructions. The patient expressed understanding and was agreeable with this plan. Diagnosis Primary Impression: Sickle cell pain crisis Referrals: Primary Care Physician 3 days Patient Instructions: General Instructions, Sickle Cell Crisis (ED) Med/Other Pt SpecificInfo: Prescription(s) given Scripts Hydrocodone-Acetaminophen (Lortab) 10-325 Mg Tab 1 TAB PO Q6H Y for PAIN, #12 TAB 0 Refills Prov: Zhane Nichols MD 06/15/17 Disposition: 01 DISCHARGE HOME Condition: Stable Zhane Nichols MD Jun 15, 2017 01:53
[2017-06-15] MEDS ORDERED: diphenhydrAMINE HCL 50 MG/ML VIAL IV PUSH ONE ×2 (02:00→04:45)
[2017-06-15] MEDS ORDERED: ONDANSETRON HCL 4 MG/2 ML VIAL IV PUSH ONE (02:00)
[2017-06-15] MEDS ORDERED: HYDROmorphone HCL PF 1 MG/ML VIAL IV PUSH ONE ×2 (02:00→04:45)
[2017-06-15 02:37] LABS: BASOPHIL # 0.3 TH/MM3 (0-0.2); BASOPHIL % 1.6 % (0.0-2.0); EOSINOPHIL # 0.3 TH/MM3 (0-0.4); EOSINOPHIL % 1.8 % (0.0-4.0); LYMPH % 20.5 % (9.0-44.0); LYMPHOCYTE # 3.7 TH/MM3 (1.0-4.8); MEAN CORPUSCULAR HEMOGLOBIN 30.1 PG (27.0-34.0); MEAN CORPUSCULAR HGB CONC 35.4 % (32.0-36.0); NEUT % 66.1 % (16.0-70.0); PLATELET COUNT 457 TH/MM3 (150-450); RED BLOOD COUNT 2.29 MIL/MM3 (4.00-5.30); RED CELL DISTRIBUTION WIDTH 17.8 % (11.6-17.2); RETIC % 12.6 % (0.4-3.0); WHITE BLOOD COUNT 18.2 TH/MM3 (4.0-11.0)
[2017-06-15 02:38] LABS: HEMATOCRIT 19.4 % (35.0-46.0); HEMO FLAGS AUTO DIFF
[2017-06-15 02:54] LABS: ALT (GPT) 15 U/L (10-53); ANION GAP 8 MEQ/L (5-15); AST (GOT) 26 U/L (15-37); BICARBONATE 22.2 MEQ/L (21.0-32.0); BLOOD UREA NITROGEN 7 MG/DL (7-18); CHLORIDE 112 MEQ/L (98-107); GLOMERULAR FILTRATION RATE 90 ML/MIN (>89); POTASSIUM 3.3 MEQ/L (3.5-5.1); SODIUM (NA) 142 MEQ/L (136-145)
[2017-06-15 02:56] LABS: ALKALINE PHOSPHATASE 77 U/L (45-117); TOTAL BILIRUBIN ADULT 2.1 MG/DL (0.2-1.0)
[2017-06-15 03:03] LABS: SCAN/DIFF AUTO DIFF CONFIRMED; SICKLE CELLS 1+ (NORMAL)
--- NOTE | 2017-06-15 03:28 | RADRPT ---
EXAM DATE/TIME: 06/15/2017 02:53 [facility] COMPARISON: CHEST SINGLE AP, March 03, 2017, 4:27. INDICATIONS : Cough. MEDICAL HISTORY : Sickle Cell disease SURGICAL HISTORY : None. ENCOUNTER: Initial ACUITY: 1 day PAIN SCORE: 10 LOCATION: Bilateral chest FINDINGS: The cardiac silhouette is enlarged in transverse diameter. The lungs are hypoinflated but clear. No e ffusions are identified. [id number] is in place via right internal jugular approach with its tip i n the superior vena cava. CONCLUSION: 1. Cardiomegaly. No acute pulmonary disease. Immanuel Karimi MD on June 15, 2017 at 3:26 Board Certified Radiologist. This report was verified electronically.
[2017-06-15] MEDS ORDERED: HYDROmorphone HCL PF 0.5 MG/0.5 ML SYRINGE IV PUSH ONE (04:00)
[2017-06-15] MEDS ORDERED: HYDR-3535 PO (04:19)
[2017-06-15 05:10] LABS: BACTERIA, URINE RARE /hpf; BLOOD, URINE TRACE (NEG); COMMENT (UR) CULTURE INDICATED; CULTURE IF INDICATED CULTURE INDICATED; GLUCOSE,URINE NEG (NEG); KETONE, URINE NEG (NEG); MUCUS URINE FEW /lpf (OCC); NITRITE,URINE NEG (NEG); SQUAMOUS EPITHELIAL CELL URINE 7 /hpf (0-5); URINE COLOR YELLOW (YELLW/STRAW)
[2017-06-15] MEDS ORDERED: MACR100C2 PO (05:41)
[2017-06-15] MEDS ORDERED: cefTRIAXone INJ 1,000 MG in SODIUM CHLORIDE 0.9% INJ 100 ML IV ONE (05:45)
== END 2017-06-15 06:50 | disposition home or self-care (01) ==
LOC: NEPE 00:46
DX: D57.00 Hb-SS disease with crisis, unspecified (principal); J45.909 Unspecified asthma, uncomplicated; I11.0 Hypertensive heart disease with heart failure; I50.9 Heart failure, unspecified; R82.99 Other abnormal findings in urine
CPT/HCPCS: 71010; 80053; 81001; 84703; 85025; 85044; 87086; 96361; 96374; 96375; 96376; 99284; J1170; J1200; J1642; J2405; J7030